=== PATIENT | female | born 1995 | race Caucasian/White ===

== ENCOUNTER 2017-03-02 08:40 | Emergency (ER) | payer BC ==
[~2017-03-02] VITALS: Ht 154.9 cm; Wt 51.8 kg
[2017-03-02 08:45] VITALS: TEMP 36.8; Ht 154.9 cm; Wt 51.8 kg
[2017-03-02] MEDS ORDERED: LOPERAMIDE LIQUID 1MG/7.5ML 120ML BTL PO ONE (09:00)
[2017-03-02] MEDS ORDERED: ONDANSETRON INJ 2 MG/ML 2 ML VIAL IV STA (09:00)
[2017-03-02] MEDS ORDERED: SODIUM CHLORIDE 0.9% 1000ML 1,000 ML IV STA (09:00)
[2017-03-02] MEDS ORDERED: BCPILLS PO (09:13)
[2017-03-02 09:47] LABS: HEMATOCRIT 38.9 % (37-47); MEAN CELL VOLUME 87.4 fL (80-100); MEAN CORPUSCULAR HEMOGLOBIN 30.1 pg (25-34); MEAN CORPUSCULAR HGB CONC 34.4 g/dl (32-36); PLATELET COUNT 213 K/uL (130-400); RED BLOOD COUNT 4.45 M/uL (4.2-5.4); WHITE BLOOD COUNT 13.03 K/uL (4.8-10.8)
[2017-03-02 09:55] LABS: URINE APPEARANCE TURBID (CLEAR); URINE COLOR ORANGE; URINE EPITHELIAL CELL AUTO >30 /lpf (0-5); URINE NITRITE NEG (NEG); URINE SPECIFIC GRAVITY 1.027 (1.000-1.030); UROBILINOGEN NEG (NEG); ZZUR CULT IF INDIC CLEAN CATCH NO
[2017-03-02 09:56] LABS: BASO % 0.2 %; BASO ABS # 0.02 K/uL (0-0.2); COMPLETE YES; EOS % 0.3 %; IG% 0.5 %; LYMPH % 4.5 %; LYMPH ABS # 0.58 K/uL (1.2-3.4); MONO % 5.3 %; NEUT % 89.2 %
[2017-03-02 10:04] LABS: MANUAL MICROSCOPIC REQUIRED? NO; REVIEW REQ? YES; URINE BILIRUBIN NEG (NEG)
[2017-03-02 10:04] LABS: CALCIUM 9.1 mg/dl (8.5-10.1); CREATININE 0.78 mg/dl (0.60-1.20); POTASSIUM 3.7 mmol/L (3.5-5.1)
[2017-03-02] MEDS ORDERED: ONDA4TAB10 SL (10:43)
--- NOTE | 2017-03-02 10:45 | EMERGENCY ROOM VISIT NOTE ---
History Report prepared by Cecilia: Laurent Ramsey Under the Supervision of: Tri SwansonO. First contact with patient: 08:59 Chief Complaint: ABDOMINAL PAIN Stated Complaint: V, ABD. PAIN, BLOODY STOOL, D, WEAKNESS History of Present Illness The patient is a 21 year old female who presents to the Emergency Room with complaints of lower abdominal pain that began last night about 8 hours ago. She rates her pain a 6/10 in severity. Very early this morning, the patient began to feel strangely. She went to the bathroom and had an episode of diarrhea. She then thought she felt better, but about a half hour later she felt very nauseated and had a large episode of emesis. Over the next few hours, she then had three more bowel movements with multiple episodes of vomiting. The first couple of episodes of diarrhea were normal in color, but then became red with blood. She notes that the last time she ate was yesterday evening. She shared multiple items of [employer] food with her friends, but she was the only on that got sick. This has never happened before. She denies any fevers. She denies any known medical problems or known allergies. Her last menstrual period was 2 weeks ago. Source of History: patient Onset: 8 hours ago Position: abdomen (lower) Symptom Intensity: 6/10 Quality: ache Timing: constant Associated Symptoms: + nausea, + vomiting, + hematochezia, + diarrhea, No fevers Review of Systems See HPI for pertinent positives & negatives. A total of 10 systems reviewed and were otherwise negative. Past Medical & Surgical Medical Problems: (1) No Known Active Medical Problems Family History Patient reports no known family medical history. Social History Smoking Status: Never Smoker Smokeless Tobacco Use: No Alcohol Use: none Drug Use: none Marital Status: single Housing Status: lives with roommate Occupation Status: student Current/Historical Medications Scheduled Control Pills ( Control Pills), 1 TAB PO DAILY Ondasetron Odt (Zofran Odt), 4 MG SL Q6H Allergies Coded Allergies: No Known Allergies (Unverified , 03/02/17) Physical Exam Vital Signs Date Time Temp Pulse Resp B/P (MAP) Pulse Ox O2 Delivery O2 Flow Rate FiO2 03/02/17 10:57 87 20 98/62 99 Room Air 03/02/17 08:45 36.8 120 18 129/91 94 Room Air Physical Exam CONSTITUTIONAL/VITAL SIGNS: Reviewed / noted above. GENERAL: Non-toxic in appearance. INTEGUMENTARY: Warm, dry, and [place]. HEAD: Normocephalic. EYES: without scleral icterus or trauma. ENT/OROPHARYNX: clear and moist. LYMPHADENOPATHY/NECK: Is supple without lymphadenopathy or meningismus. RESPIRATORY: Lungs clear and equal. CARDIOVASCULAR: Tachycardic rate and regular rhythm. GI/ABDOMEN: Soft. Mild diffuse tenderness. No organomegaly or pulsatile mass. No rebound or guarding. Normal bowel sounds. EXTREMITIES: Warm and well perfused. BACK: No CVA tenderness. NEUROLOGICAL: Intact without focal deficits. PSYCHIATRIC: normal affect. MUSCULOSKELETAL: Normally developed with good muscle tone. Medical Decision & Procedures Laboratory Results 03/02/17 09:20 Red Blood Count 4.45, Mean Corpuscular Volume 87.4, Mean Corpuscular Hemoglobin 30.1, Mean Corpuscular Hemoglobin Concent 34.4, Neutrophils (%) (Auto) 89.2, Lymphocytes (%) (Auto) 4.5, Monocytes (%) (Auto) 5.3, Eosinophils (%) (Auto) 0.3 , Basophils (%) (Auto) 0.2, Neutrophils # (Auto) 11.64, Lymphocytes # (Auto) 0.58, Monocytes # (Auto) 0.69, Eosinophils # (Auto) 0.04, Basophils # (Auto) 0.02 03/02/17 09:20 Test 03/02/17 07:25 03/02/17 09:20 Urine Color ORANGE Urine Appearance TURBID (CLEAR) Urine pH 5.0 (4.5-7.5) Urine Specific [place] 1.027 (1.000-1.030) Urine Protein NEG (NEG) Urine Glucose (UA) NEG (NEG) Urine Ketones TRACE (NEG) Urine Occult Blood 2+ (NEG) Urine Nitrite NEG (NEG) Urine Bilirubin NEG (NEG) Urine Urobilinogen NEG (NEG) Urine Leukocyte Esterase TRACE (NEG) Urine WBC (Auto) 5-10 /hpf (0-5) Urine RBC (Auto) 0-4 /hpf (0-4) Urine Hyaline Casts (Auto) 1-5 /lpf (0-5) Urine Epithelial Cells (Auto) >30 /lpf (0-5) Urine Bacteria (Auto) NEG (NEG) Urine Test NEG (NEG) White Blood Count 13.03 K/uL (4.8-10.8) Red Blood Count 4.45 M/uL (4.2-5.4) Hemoglobin 13.4 g/dL (12.0-16.0) Hematocrit 38.9 % (37-47) Mean Corpuscular Volume 87.4 fL (80-100) Mean Corpuscular Hemoglobin 30.1 pg (25-34) Mean Corpuscular Hemoglobin Concent 34.4 g/dl (32-36) Platelet Count 213 K/uL (130-400) Neutrophils (%) (Auto) 89.2 % Lymphocytes (%) (Auto) 4.5 % Monocytes (%) (Auto) 5.3 % Eosinophils (%) (Auto) 0.3 % Basophils (%) (Auto) 0.2 % Neutrophils # (Auto) 11.64 K/uL (1.4-6.5) Lymphocytes # (Auto) 0.58 K/uL (1.2-3.4) Monocytes # (Auto) 0.69 K/uL (0.11-0.59) Eosinophils # (Auto) 0.04 K/uL (0-0.5) Basophils # (Auto) 0.02 K/uL (0-0.2) Immature Granulocyte % (Auto) 0.5 % Immature Granulocyte # (Auto) 0.06 K/uL (0.00-0.02) Anion Gap 10.0 mmol/L (3-11) Est Creatinine Clear Calc Drug Dose 87.5 ml/min Estimated GFR () 127.7 Estimated GFR (Non- 110.2 BUN/Creatinine Ratio 13.0 (10-20) Calcium Level 9.1 mg/dl (8.5-10.1) Total Bilirubin 1.7 mg/dl (0.2-1) Direct Bilirubin 0.3 mg/dl (0-0.2) Aspartate Amino Transf (AST/SGOT) 12 U/L (15-37) Alanine Aminotransferase (ALT/SGPT) 17 U/L (12-78) Alkaline Phosphatase 54 U/L (45-117) Total Protein 7.3 gm/dl (6.4-8.2) Albumin 4.0 gm/dl (3.4-5.0) Lipase 246 U/L (73-393) Laboratory results as stated above per my review. Medications Administered Medications (Trade) Dose Ordered Sig/Jose Route Start Time Stop Time Status Last Admin Dose Admin Sodium Chloride 1,000 ml @ 999 mls/hr Q1H1M STAT IV 03/02/17 09:00 12 10:00 DC 03/02/17 09:36 999 MLS/HR Ondansetron HCl (Zofran Inj) 4 mg NOW STAT IV 03/02/17 09:00 03/02/17 09:01 DC 03/02/17 09:36 4 MG Loperamide HCl (Imodium A-D Liquid) 2 mg ONE ONCE PO 03/02/17 09:00 03/02/17 09:01 DC 03/02/17 09:37 2 MG ED Course 0859: Previous medical records were reviewed. The patient was evaluated in room A9. A complete history and physical examination was performed. 0900: Ordered Loperamide HCl 2 mg PO, Zofran Inj 4 mg IV, Sodium Chloride 1000 ml @ 999 mls/hr IV 1046: On reevaluation, the patient is resting. I discussed the results and findings with the patient. She verbalized agreement of the treatment plan. She was discharged home. Medical Decision Differential diagnosis: Etiologies such as gastroenteritis, food borne illness, infections, appendicitis , diverticulitis, inflammatory bowel disease, obstruction, GI bleed, biliary pathology, as well as others were entertained. This is a 21-year-old female who presents to the ED with a chief complaint of abdominal discomfort in addition to nausea, vomiting or diarrhea. The patient states that she ate [employer] food around 9 PM last night. She states that hurt her friend sharing their food. Around 1 AM the patient awoke with diarrhea. This was followed by vomiting. She had numerous episodes of each. She states that the latter portion of the diarrhea this morning was reddish. She is passing a small amount of blood. She came in for evaluation of this. Her discomfort is mild and she does not request pain medication. The patient's exam reveals some mild diffuse abdominal tenderness. White blood cell count was 13, hemoglobin is 13.4. T bilirubin is elevated at 1.17. Lipase was negative. LFTs are normal. Urine did not show infection. test was negative. The patient was treated with IV fluids, IV Zofran was also given. The patient was feeling better on reassessment. She'll be discharged on Zofran. I suspect either a viral gastroenteritis or food poisoning. She does not have any clinical findings to suggest appendicitis or other acute intra- abdominal process that requires surgery antibiotic at this time. She was advised to return if things change or worsen. Her anticipated improvement is over the next 24-48 hours. Medication Reconcilliation Current Medication List: was personally reviewed by me Blood Pressure Screening Patient's blood pressure: Normal blood pressure Blood pressure disposition: Did not require urgent referral Impression Primary Impression: Nausea vomiting and diarrhea Additional Impression: Diffuse abdominal pain Scribe Attestation The scribe's documentation has been prepared under my direction and personally reviewed by me in its entirety. I confirm that the note above accurately reflects all work, treatment, procedures, and medical decision making performed by me. Departure Information Dispostion Home / Self-Care Prescriptions Ondasetron Odt (ZOFRAN ODT) 4 Mg Tab 4 MG SL Q6H for Nausea, #6 TAB Prov: Rock Mariscal D.O. 03/02/17 Referrals No Doctor, Assigned (PCP) Forms HOME CARE DOCUMENTATION FORM, IMPORTANT VISIT INFORMATION Patient Instructions My [facility] Additional Instructions Anticipate improvement of symptoms over the next 24-48 hours. Zofran: Allow one tablet to dissolve under the tongue every 6 hours as needed for nausea or vomiting. If your symptoms worsen, change or do not improve next couple days, see your doctor or return here for further evaluation. Problem Qualifiers
[2017-03-02 10:57] VITALS: BP 98/62; PULSE 87; O2SAT 99
== END 2017-03-02 11:11 | disposition home or self-care (01) ==
LOC: C.EDB 08:42 → C.EDA 11:11
DX: R10.9 Unspecified abdominal pain (principal); R11.2 Nausea with vomiting, unspecified; R19.7 Diarrhea, unspecified; R53.1 Weakness